=== PATIENT | female | born 1995 | race African-American/Black ===

== ENCOUNTER 2025-01-28 12:03 | Emergency (ER) | payer MEDICAID ==
[~2025-01-28] VITALS: Ht 157.5 cm; Wt 113.0 kg
[2025-01-28 12:06] VITALS: O2SAT 98
[2025-01-28 13:18] LABS: EOSINOPHILS % 1.1 % (0.0-5.0); HEMATOCRIT. 43.7 % (36.0-48.0); HEMOGLOBIN. 14.6 g/dL (12.0-16.0); LYMPHOCYTES % 30.9 % (20.0-50.0); MEAN CORPUSCULAR HEMOGLOBIN 29.3 pg (28.0-32.0); MEAN CORPUSCULAR HGB CONC 33.3 g/dL (31.0-37.0); PLATELET 522 x1000/uL (130-400); RED BLOOD CELL COUNT 4.97 mill/uL (4.2-5.4); RED CELL DISTRIBUTION WIDTH 14.4 % (11.6-14.6); WHITE BLOOD COUNT 8.3 x1000/uL (4.5-11.0)
[2025-01-28 13:24] LABS: HCG SCREEN NEGATIVE
[2025-01-28 13:25] LABS: CHLORIDE 107 mEq/L (98-107); POTASSIUM 3.8 mEq/L (3.5-5.1); SODIUM 139 mEq/L (136-145)
[2025-01-28 13:26] LABS: CALCIUM 10.3 mg/dL (8.7-10.4); CARBON DIOXIDE 24 mEq/L (21-32)
[2025-01-28 13:31] LABS: CREATININE 0.8 mg/dL (0.6-1.0); GLUCOSE 122 mg/dL (70-105); UREA NITROGEN BLOOD 14 mg/dL (9-23)
[2025-01-28 13:32] LABS: ETHANOL BLOOD < 10 mg/dL (<10)
[2025-01-28 13:33] LABS: ACETAMINOPHEN < 2 ug/mL (10-30)
[2025-01-28 13:39] LABS: B-HCG QUANTITATIVE < 1 mIU/mL (<6)
[2025-01-28 14:38] VITALS: BP 144/81; PULSE 80; RESP 16; TEMP 36.9; O2SAT 98
== END 2025-01-28 14:48 | disposition home or self-care (01) ==
LOC: ER 12:03
DX: F20.9 Schizophrenia, unspecified (principal); N93.9 Abnormal uterine and vaginal bleeding, unspecified; Z88.0 Allergy status to penicillin; Z79.899 Other long term (current) drug therapy
CPT/HCPCS: 36415; 76830; 76856; 80048; 80307; 80320; 80329; 84702; 84703; 85025; 86850; 86900; 99284; G0480